=== PATIENT | male | born 1955 | race Caucasian/White ===

== ENCOUNTER → 2016-05-31 | Outpatient (CLI) | payer OTHER ==
[~2016-05-31] MED LIST: CALC667C3 PO; CARV25TA12 PO; CEFD300C2 PO; CHOL40002 PO; ESZO2TAB34 PO; FENO160T PO; GABA300C10 PO; INSU100C SQ-INSULIN; INSU100V8 SQ; INSU300I SC; MIDO10TA PO; PROM25TA10 PO; SEVE800T PO; TRAZ100T15 PO; VANC1PLA IVPB
== END | disposition home or self-care (01) ==
LOC: WOUND 08:45
PROVIDERS: ATTEND Internal Medicine
DX: E11.622 Type 2 diabetes mellitus with other skin ulcer (principal); L97.324 Non-pressure chronic ulcer of left ankle with necrosis of bone; E11.40 Type 2 diabetes mellitus with diabetic neuropathy, unspecified; E11.22 Type 2 diabetes mellitus with diabetic chronic kidney disease; I13.2 Hypertensive heart and chronic kidney disease with heart failure and with stage 5 chronic kidney disease, or end stage renal disease; N18.6 End stage renal disease; I50.9 Heart failure, unspecified; E66.01 Morbid (severe) obesity due to excess calories; Z68.37 Body mass index [BMI] 37.0-37.9, adult; E11.51 Type 2 diabetes mellitus with diabetic peripheral angiopathy without gangrene; E78.5 Hyperlipidemia, unspecified; Z86.718 Personal history of other venous thrombosis and embolism; M19.072 Primary osteoarthritis, left ankle and foot; Z86.73 Personal history of transient ischemic attack (TIA), and cerebral infarction without residual deficits; Z79.4 Long term (current) use of insulin; I25.2 Old myocardial infarction; Z87.01 Personal history of pneumonia (recurrent); Z89.422 Acquired absence of other left toe(s); Z89.511 Acquired absence of right leg below knee; Z99.2 Dependence on renal dialysis
CPT/HCPCS: 97597

== ENCOUNTER → 2016-06-14 | Outpatient (CLI) | payer OTHER | END | disposition home or self-care (01) | LOC: WOUND 07:45 | PROVIDERS: ATTEND Internal Medicine | DX: E11.622 Type 2 diabetes mellitus with other skin ulcer (principal); L89.523 Pressure ulcer of left ankle, stage 3; E11.40 Type 2 diabetes mellitus with diabetic neuropathy, unspecified; E11.22 Type 2 diabetes mellitus with diabetic chronic kidney disease; N18.9 Chronic kidney disease, unspecified; Z95.0 Presence of cardiac pacemaker; Z89.511 Acquired absence of right leg below knee; Z89.422 Acquired absence of other left toe(s) | CPT/HCPCS: 97597 ==

== ENCOUNTER → 2016-06-28 | Outpatient (CLI) | payer OTHER | END | disposition home or self-care (01) | LOC: WOUND 08:17 | PROVIDERS: ATTEND Internal Medicine | DX: E11.622 Type 2 diabetes mellitus with other skin ulcer (principal); L97.324 Non-pressure chronic ulcer of left ankle with necrosis of bone; E11.40 Type 2 diabetes mellitus with diabetic neuropathy, unspecified; Z68.37 Body mass index [BMI] 37.0-37.9, adult; E66.01 Morbid (severe) obesity due to excess calories; E11.22 Type 2 diabetes mellitus with diabetic chronic kidney disease; I13.2 Hypertensive heart and chronic kidney disease with heart failure and with stage 5 chronic kidney disease, or end stage renal disease; I50.9 Heart failure, unspecified; N18.6 End stage renal disease; Z99.2 Dependence on renal dialysis; E78.5 Hyperlipidemia, unspecified; I25.2 Old myocardial infarction; Z86.718 Personal history of other venous thrombosis and embolism; M19.072 Primary osteoarthritis, left ankle and foot; Z86.73 Personal history of transient ischemic attack (TIA), and cerebral infarction without residual deficits; E11.51 Type 2 diabetes mellitus with diabetic peripheral angiopathy without gangrene; I25.10 Atherosclerotic heart disease of native coronary artery without angina pectoris; E44.0 Moderate protein-calorie malnutrition; G47.30 Sleep apnea, unspecified; Z89.422 Acquired absence of other left toe(s); Z89.511 Acquired absence of right leg below knee | CPT/HCPCS: 97597 ==

== ENCOUNTER → 2016-07-05 | Outpatient (CLI) | payer OTHER | END | disposition home or self-care (01) | LOC: WOUND 08:15 | PROVIDERS: ATTEND Internal Medicine | DX: E11.622 Type 2 diabetes mellitus with other skin ulcer (principal); L97.324 Non-pressure chronic ulcer of left ankle with necrosis of bone; E11.40 Type 2 diabetes mellitus with diabetic neuropathy, unspecified; I25.10 Atherosclerotic heart disease of native coronary artery without angina pectoris; Z68.37 Body mass index [BMI] 37.0-37.9, adult; E66.01 Morbid (severe) obesity due to excess calories; E44.0 Moderate protein-calorie malnutrition; E11.22 Type 2 diabetes mellitus with diabetic chronic kidney disease; I13.2 Hypertensive heart and chronic kidney disease with heart failure and with stage 5 chronic kidney disease, or end stage renal disease; I50.20 Unspecified systolic (congestive) heart failure; N18.6 End stage renal disease; Z99.2 Dependence on renal dialysis; Z86.718 Personal history of other venous thrombosis and embolism; Z86.73 Personal history of transient ischemic attack (TIA), and cerebral infarction without residual deficits; I25.2 Old myocardial infarction; E11.51 Type 2 diabetes mellitus with diabetic peripheral angiopathy without gangrene; Z79.4 Long term (current) use of insulin | CPT/HCPCS: 97597 ==

== ENCOUNTER → 2016-07-19 | Outpatient (CLI) | payer OTHER ==
[~2016-07-19] MED LIST changes: -CEFD300C2 PO; +CEFD300C37 PO
== END | disposition home or self-care (01) ==
LOC: WOUND 08:00
PROVIDERS: ATTEND Internal Medicine
DX: E11.622 Type 2 diabetes mellitus with other skin ulcer (principal); L97.324 Non-pressure chronic ulcer of left ankle with necrosis of bone; E11.40 Type 2 diabetes mellitus with diabetic neuropathy, unspecified; I25.10 Atherosclerotic heart disease of native coronary artery without angina pectoris; E44.0 Moderate protein-calorie malnutrition; E11.22 Type 2 diabetes mellitus with diabetic chronic kidney disease; I13.2 Hypertensive heart and chronic kidney disease with heart failure and with stage 5 chronic kidney disease, or end stage renal disease; I50.20 Unspecified systolic (congestive) heart failure; N18.6 End stage renal disease; Z99.2 Dependence on renal dialysis; I25.2 Old myocardial infarction; E78.5 Hyperlipidemia, unspecified; E11.51 Type 2 diabetes mellitus with diabetic peripheral angiopathy without gangrene; M19.072 Primary osteoarthritis, left ankle and foot; Z68.37 Body mass index [BMI] 37.0-37.9, adult; Z95.0 Presence of cardiac pacemaker; Z86.718 Personal history of other venous thrombosis and embolism; Z89.422 Acquired absence of other left toe(s); Z89.511 Acquired absence of right leg below knee; Z86.73 Personal history of transient ischemic attack (TIA), and cerebral infarction without residual deficits
CPT/HCPCS: 99214

== ENCOUNTER → 2016-08-02 | Outpatient (CLI) | payer OTHER | END | disposition home or self-care (01) | LOC: WOUND 08:53 | PROVIDERS: ATTEND Internal Medicine | DX: E11.622 Type 2 diabetes mellitus with other skin ulcer (principal); L97.324 Non-pressure chronic ulcer of left ankle with necrosis of bone; L97.821 Non-pressure chronic ulcer of other part of left lower leg limited to breakdown of skin; E11.40 Type 2 diabetes mellitus with diabetic neuropathy, unspecified; I25.10 Atherosclerotic heart disease of native coronary artery without angina pectoris; E11.22 Type 2 diabetes mellitus with diabetic chronic kidney disease; I13.2 Hypertensive heart and chronic kidney disease with heart failure and with stage 5 chronic kidney disease, or end stage renal disease; I50.20 Unspecified systolic (congestive) heart failure; N18.6 End stage renal disease; Z99.2 Dependence on renal dialysis; E11.51 Type 2 diabetes mellitus with diabetic peripheral angiopathy without gangrene; G47.30 Sleep apnea, unspecified; E44.0 Moderate protein-calorie malnutrition; Z86.718 Personal history of other venous thrombosis and embolism; M19.072 Primary osteoarthritis, left ankle and foot; I25.2 Old myocardial infarction; E66.01 Morbid (severe) obesity due to excess calories; Z68.37 Body mass index [BMI] 37.0-37.9, adult; Z95.0 Presence of cardiac pacemaker; Z89.511 Acquired absence of right leg below knee; Z89.422 Acquired absence of other left toe(s); Z79.4 Long term (current) use of insulin | CPT/HCPCS: 97597; 99215 ==

== ENCOUNTER → 2016-08-09 | Outpatient (CLI) | payer OTHER ==
[~2016-08-09] MED LIST changes: +PRED5TAB PO
== END | disposition home or self-care (01) ==
LOC: WOUND 09:30
PROVIDERS: ATTEND Internal Medicine
DX: E11.622 Type 2 diabetes mellitus with other skin ulcer (principal); L97.821 Non-pressure chronic ulcer of other part of left lower leg limited to breakdown of skin; E11.40 Type 2 diabetes mellitus with diabetic neuropathy, unspecified; L97.324 Non-pressure chronic ulcer of left ankle with necrosis of bone; Z95.0 Presence of cardiac pacemaker; E66.01 Morbid (severe) obesity due to excess calories; I25.2 Old myocardial infarction; Z86.718 Personal history of other venous thrombosis and embolism; E78.5 Hyperlipidemia, unspecified; E11.51 Type 2 diabetes mellitus with diabetic peripheral angiopathy without gangrene; E11.22 Type 2 diabetes mellitus with diabetic chronic kidney disease; I13.2 Hypertensive heart and chronic kidney disease with heart failure and with stage 5 chronic kidney disease, or end stage renal disease; I50.20 Unspecified systolic (congestive) heart failure; N18.6 End stage renal disease; Z99.2 Dependence on renal dialysis; Z68.37 Body mass index [BMI] 37.0-37.9, adult; Z79.4 Long term (current) use of insulin; Z89.422 Acquired absence of other left toe(s); Z89.421 Acquired absence of other right toe(s)
CPT/HCPCS: 97597

== ENCOUNTER → 2016-08-18 | Outpatient (CLI) | payer OTHER | END | disposition home or self-care (01) | LOC: WOUND 09:24 | PROVIDERS: ATTEND Podiatrist Foot & Ankle Surgery | DX: E11.622 Type 2 diabetes mellitus with other skin ulcer (principal); L97.324 Non-pressure chronic ulcer of left ankle with necrosis of bone; E11.40 Type 2 diabetes mellitus with diabetic neuropathy, unspecified; E11.22 Type 2 diabetes mellitus with diabetic chronic kidney disease; N18.9 Chronic kidney disease, unspecified; Z95.0 Presence of cardiac pacemaker | CPT/HCPCS: 99213 ==

== ENCOUNTER → 2016-09-13 | Outpatient (CLI) | payer OTHER | END | disposition home or self-care (01) | LOC: WOUND 10:11 | PROVIDERS: ATTEND Internal Medicine | DX: E11.622 Type 2 diabetes mellitus with other skin ulcer (principal); L97.324 Non-pressure chronic ulcer of left ankle with necrosis of bone; E11.621 Type 2 diabetes mellitus with foot ulcer; L97.521 Non-pressure chronic ulcer of other part of left foot limited to breakdown of skin; L97.821 Non-pressure chronic ulcer of other part of left lower leg limited to breakdown of skin; L89.523 Pressure ulcer of left ankle, stage 3; E11.40 Type 2 diabetes mellitus with diabetic neuropathy, unspecified; I95.9 Hypotension, unspecified; E11.22 Type 2 diabetes mellitus with diabetic chronic kidney disease; N18.9 Chronic kidney disease, unspecified; Z95.0 Presence of cardiac pacemaker; Z89.511 Acquired absence of right leg below knee; Z89.422 Acquired absence of other left toe(s) | CPT/HCPCS: 97597 ==

== ENCOUNTER → 2016-10-11 | Outpatient (CLI) | payer OTHER | END | disposition home or self-care (01) | LOC: WOUND 08:12 | PROVIDERS: ATTEND Internal Medicine | DX: E11.622 Type 2 diabetes mellitus with other skin ulcer (principal); L97.324 Non-pressure chronic ulcer of left ankle with necrosis of bone; L89.523 Pressure ulcer of left ankle, stage 3; E11.40 Type 2 diabetes mellitus with diabetic neuropathy, unspecified; I25.10 Atherosclerotic heart disease of native coronary artery without angina pectoris; E11.22 Type 2 diabetes mellitus with diabetic chronic kidney disease; I13.2 Hypertensive heart and chronic kidney disease with heart failure and with stage 5 chronic kidney disease, or end stage renal disease; I50.9 Heart failure, unspecified; N18.6 End stage renal disease; Z99.2 Dependence on renal dialysis; Z79.4 Long term (current) use of insulin; Z95.0 Presence of cardiac pacemaker; Z89.511 Acquired absence of right leg below knee; Z89.422 Acquired absence of other left toe(s); E11.51 Type 2 diabetes mellitus with diabetic peripheral angiopathy without gangrene | CPT/HCPCS: 99215 ==

== ENCOUNTER → 2016-10-18 | Outpatient (CLI) | payer OTHER | END | disposition home or self-care (01) | LOC: WOUND 08:34 | PROVIDERS: ATTEND Internal Medicine | DX: E11.622 Type 2 diabetes mellitus with other skin ulcer (principal); L97.324 Non-pressure chronic ulcer of left ankle with necrosis of bone; L89.523 Pressure ulcer of left ankle, stage 3; S90.932D Unspecified superficial injury of left great toe, subsequent encounter; E11.40 Type 2 diabetes mellitus with diabetic neuropathy, unspecified; I25.10 Atherosclerotic heart disease of native coronary artery without angina pectoris; E11.51 Type 2 diabetes mellitus with diabetic peripheral angiopathy without gangrene; E11.22 Type 2 diabetes mellitus with diabetic chronic kidney disease; I13.2 Hypertensive heart and chronic kidney disease with heart failure and with stage 5 chronic kidney disease, or end stage renal disease; N18.6 End stage renal disease; I50.9 Heart failure, unspecified; Z99.2 Dependence on renal dialysis; Z79.4 Long term (current) use of insulin; Z89.422 Acquired absence of other left toe(s); Z89.511 Acquired absence of right leg below knee; X58.XXXD Exposure to other specified factors, subsequent encounter | CPT/HCPCS: 99214 ==

== ENCOUNTER → 2018-09-11 | Outpatient (CLI) | payer MEDICARE, BC ==
[~2018-09-11] MED LIST changes: +ESZO2TAB22 PO; -ESZO2TAB34 PO; +REGADENOSON 0.4 MG/5 ML SYRINGE ONE; -SEVE800T PO; +SEVE800T7 PO; +TRAZ-137 PO; -TRAZ100T15 PO
== END | disposition home or self-care (01) ==
LOC: RAD 10:31
PROVIDERS: ATTEND Internal Medicine Cardiovascular Disease
DX: I35.0 Nonrheumatic aortic (valve) stenosis (principal); E78.5 Hyperlipidemia, unspecified; E11.9 Type 2 diabetes mellitus without complications; Z95.0 Presence of cardiac pacemaker
CPT/HCPCS: 78452; 93017; A9502; C8929; J2785; Q9957

== ENCOUNTER 2019-01-25 07:56 | Observation (INO) | payer BC, MEDICARE ==
[~2019-01-25] VITALS: Ht 190.5 cm; Wt 143.1 kg
[2019-01-25 07:40] VITALS: BP 104/64
[~2019-01-25 07:56] MED LIST changes: -REGADENOSON 0.4 MG/5 ML SYRINGE ONE; -VANC1PLA IVPB; +VANC1PLA18 IVPB
[2019-01-25 08:01] VITALS: BP 126/63
[2019-01-25] MEDS ORDERED: CINA30TA2 PO (08:55)
[2019-01-25] MEDS ORDERED: ATOR20TA37 PO (08:57)
[2019-01-25] MEDS ORDERED: ASPI-496 PO (08:57)
[2019-01-25] MEDS ORDERED: MIDAZOLAM 1 MG/ML, 2ML ONE (09:30)
[2019-01-25] MEDS ORDERED: LIDOCAINE 1%, 20ML ONE (09:30)
[2019-01-25] MEDS ORDERED: HEPARIN 1,000 UNITS/ML, 10ML ONE (09:30)
[2019-01-25] MEDS ORDERED: FENTANYL PF 100 MCG/2ML ONE (09:30)
[2019-01-25] MEDS ORDERED: NITROGLYCERIN 5 MG/ML, 10ML ONE (09:30)
[2019-01-25] MEDS ORDERED: VERAPAMIL 2.5 MG/ML, 2ML ONE (09:30)
[2019-01-25] MEDS ORDERED: MULT-717 PO (09:51)
[2019-01-25] MEDS ORDERED: METO25TA91 PO (09:51)
[2019-01-25] MEDS ORDERED: SEVE800T8 PO (09:51)
[2019-01-25] MEDS ORDERED: ESZO3TAB28 PO (09:51)
[2019-01-25] MEDS ORDERED: INSU100V11 SQ (09:51)
[2019-01-25] MEDS ORDERED: LACT1CAP43 PO (09:51)
[2019-01-25] MEDS ORDERED: INSU300I SQ (09:51)
[2019-01-25] MEDS ORDERED: PLEASE ENTER WEIGHT MC SCH (10:00)
[2019-01-25] MEDS ORDERED: methylPREDNISolone SOD SUCC 125 MG/2 ML IVPush SCH (10:00)
[2019-01-25] MEDS ORDERED: DIPHENHYDRAMINE 50 MG/ML, 1ML IVPush ONE (10:00)
[2019-01-25 10:45] LABS: BASOPHILS # (AUTO) 0.06 x10^3/uL (0-0.1); BASOPHILS % (AUTO) 1 % (0-1); EOSINOPHILS # (AUTO) 0.15 x10^3/uL (0-0.4); EOSINOPHILS % (AUTO) 2 % (1-7); LYMPHOCYTES # (AUTO) 1.86 x10^3/uL (1-3.4); LYMPHOCYTES % (AUTO) 23 % (22-44); MD NO; MEAN CORPUSCULAR HEMOGLOBIN 28.4 pg (27.5-34.5); MEAN CORPUSCULAR HGB CONC 32.1 g/dL (33.2-36.2); MEAN CORPUSCULAR VOLUME 88.5 fL (81-97); MEAN PLATELET VOLUME 8.1 fL (7.4-10.4); MONOCYTES # (AUTO) 0.79 x10^3/uL (0.2-0.8); MONOCYTES % (AUTO) 10 % (2-9); NEUTROPHILS # (AUTO) 5.15 x10^3/uL (1.8-6.8); NEUTROPHILS % (AUTO) 64 % (42-75); PLATELET COUNT 159 x10^3/uL (130-400); RED BLOOD COUNT 3.08 x10^6/uL (4.38-5.82); RED CELL DISTRIBUTION WIDTH 18.2 % (9.4-14.8)
[2019-01-25 10:46] LABS: ANION GAP 7 mmol/L (5-15); CALCIUM 8.6 mg/dL (8.5-10.1); CHLORIDE 103 mmol/L (98-107)
[2019-01-25 10:47] LABS: CREATININE 7.93 mg/dL (0.7-1.3)
[2019-01-25] MEDS ORDERED: DIPHENHYDRAMINE 50 MG/ML, 1ML ONE (10:56)
[2019-01-25] MEDS ORDERED: methylPREDNISolone SOD SUCC 125 MG/2 ML ONE (10:56)
[2019-01-25] MEDS ORDERED: SODIUM CHLORIDE 0.9% 1,000 ML IV SCH ×2 (11:00→12:15)
[2019-01-25] MEDS ORDERED: BIVALIRUDIN 250 MG ONE (11:49)
[2019-01-25] MEDS ORDERED: TICAGRELOR 90 MG TABLET ONE (11:49)
[2019-01-25 14:15] VITALS: BP 123/76
== END 2019-01-25 18:35 | disposition home or self-care (01) ==
LOC: INTOOBSV 07:56 → 5SO 07:56
PROVIDERS: ADMIT Internal Medicine Cardiovascular Disease; ATTEND Internal Medicine Cardiovascular Disease
DX: I35.0 Nonrheumatic aortic (valve) stenosis (principal); I25.10 Atherosclerotic heart disease of native coronary artery without angina pectoris; I12.0 Hypertensive chronic kidney disease with stage 5 chronic kidney disease or end stage renal disease; E11.22 Type 2 diabetes mellitus with diabetic chronic kidney disease; N18.6 End stage renal disease; E66.9 Obesity, unspecified; N25.0 Renal osteodystrophy; E11.51 Type 2 diabetes mellitus with diabetic peripheral angiopathy without gangrene; D63.1 Anemia in chronic kidney disease
CPT/HCPCS: 36415; 80048; 85025; 93454; 93571; 96374; 96375; 99156; 99157; C1769; C1887; C1894; G0378; J1200; J1644; J2250; J2930; J3010; J3490; Q9967; J0583

== ENCOUNTER 2019-02-12 11:57 | Outpatient (CLI) | payer BC, MEDICARE ==
[~2019-02-12 11:57] MED LIST changes: +ASPI-496 PO; +ATOR20TA37 PO; +CINA30TA2 PO; +ESZO3TAB28 PO; +INSU100V11 SQ; +INSU300I SQ; +LACT1CAP43 PO; +METO25TA91 PO; +MULT-717 PO; +SEVE800T8 PO; -TRAZ-137 PO; +TRAZ-175 PO
== END 2019-02-12 23:59 | disposition home or self-care (01) ==
LOC: CVU 11:57 → RAD 23:59
PROVIDERS: ATTEND Internal Medicine Cardiovascular Disease
DX: I35.0 Nonrheumatic aortic (valve) stenosis (principal); K22.8 Other specified diseases of esophagus; I65.23 Occlusion and stenosis of bilateral carotid arteries; Z95.0 Presence of cardiac pacemaker
CPT/HCPCS: 71250; 74176; 93880; 94060; 94729

== ENCOUNTER 2019-02-28 06:29 | Inpatient (IN) | payer MEDICARE, BC ==
[~2019-02-28] VITALS: Ht 190.5 cm; Wt 153.0 kg
[~2019-02-28 06:29] MED LIST changes: +CHLORHEXIDINE 15 ML UDC ONE; +TRAZ-137 PO; -TRAZ-175 PO
[2019-02-28] MEDS ORDERED: SODIUM CHLORIDE 0.9% 1,000 ML IV SCH (07:09)
[2019-02-28] MEDS ORDERED: PROPOFOL 10 MG/ML, 20ML ONE (07:26)
[2019-02-28] MEDS ORDERED: LIDOCAINE-MPF 2% ,5ML ONE (07:26)
[2019-02-28] MEDS ORDERED: PHENYLEPHRINE 10 MG/ML ONE ×2 (07:26)
[2019-02-28] MEDS ORDERED: DEXAMETHASONE 4 MG/ML, 1ML ONE ×2 (07:26)
[2019-02-28] MEDS ORDERED: DIPHENHYDRAMINE 50 MG/ML, 1ML IVPush ONE (07:30)
[2019-02-28] MEDS ORDERED: methylPREDNISolone SOD SUCC 125 MG/2 ML IVPush ONE (07:30)
[2019-02-28] MEDS ORDERED: FENTANYL PF 100 MCG/2ML ONE ×3 (07:32→09:17)
[2019-02-28] MEDS ORDERED: HEPARIN 1,000 UNITS/ML, 10ML ONE (07:50)
[2019-02-28] MEDS ORDERED: ONDANSETRON 2MG/ML, 2ML ONE (07:50)
[2019-02-28] MEDS ORDERED: SUCCINYLCHOLINE 20 MG/ML, 10ML ONE (07:50)
[2019-02-28] MEDS ORDERED: CEFAZOLIN 1,000 MG ONE ×2 (07:50→07:56)
[2019-02-28] MEDS ORDERED: ROCURONIUM 10MG/ML,5ML ONE (07:50)
[2019-02-28] MEDS ORDERED: PROTAMINE SULFATE 10 MG/ML, 5ML ONE ×2 (07:50→09:13)
[2019-02-28 07:56] LABS: BASOPHILS # (AUTO) 0.05 x10^3/uL (0-0.1); BASOPHILS % (AUTO) 1 % (0-1); EOSINOPHILS # (AUTO) 0.18 x10^3/uL (0-0.4); EOSINOPHILS % (AUTO) 2 % (1-7); LYMPHOCYTES # (AUTO) 1.35 x10^3/uL (1-3.4); LYMPHOCYTES % (AUTO) 14 % (22-44); MD NO; MEAN CORPUSCULAR HEMOGLOBIN 27.7 pg (27.5-34.5); MEAN CORPUSCULAR HGB CONC 31.9 g/dL (33.2-36.2); MEAN CORPUSCULAR VOLUME 86.8 fL (81-97); MEAN PLATELET VOLUME 7.6 fL (7.4-10.4); MONOCYTES # (AUTO) 1.43 x10^3/uL (0.2-0.8); MONOCYTES % (AUTO) 15 % (2-9); NEUTROPHILS # (AUTO) 6.71 x10^3/uL (1.8-6.8); NEUTROPHILS % (AUTO) 69 % (42-75); PLATELET COUNT 242 x10^3/uL (130-400); RED BLOOD COUNT 3.36 x10^6/uL (4.38-5.82); RED CELL DISTRIBUTION WIDTH 17.5 % (9.4-14.8)
[2019-02-28 08:02] LABS: INTERNATIONAL NORMALIZED RATIO 1.07 (0.93-1.1); PROTHROMBIN TIME 11.2 Seconds (9.6-11.5)
[2019-02-28 08:04] LABS: ALANINE AMINOTRANSFERASE 13 U/L (12-78); ALBUMIN 2.4 g/dL (3.4-5.0); ANION GAP 8 mmol/L (5-15); CALCIUM 8.5 mg/dL (8.5-10.1); CHLORIDE 98 mmol/L (98-107); CREATININE 6.01 mg/dL (0.7-1.3)
[2019-02-28 08:06] LABS: ALKALINE PHOSPHATASE 144 U/L (45-117); BILIRUBIN,TOTAL 0.8 mg/dL (0.2-1.0); TOTAL PROTEIN 6.8 g/dL (6.4-8.2)
[2019-02-28] MEDS ORDERED: NEOSTIGMINE 1 MG/ML, 10ML ONE (08:59)
[2019-02-28] MEDS ORDERED: GLYCOPYRROLATE 0.2MG/1ML, 5ML ONE (08:59)
[2019-02-28] MEDS ORDERED: ONDANSETRON 2MG/ML, 2ML IVPush PRN (09:30)
[2019-02-28] MEDS ORDERED: GABAPENTIN 300 MG CAPSULE PO PRN (09:30)
[2019-02-28] MEDS ORDERED: hydrALAzine 20 MG/ML, 1ML IVPush PRN (09:30)
[2019-02-28] MEDS ORDERED: ACETAMINOPHEN 325 MG TABLET PO PRN (09:30)
[2019-02-28] MEDS ORDERED: CLOPIDOGREL 300 MG TABLET PO ONE (09:30)
[2019-02-28] MEDS ORDERED: LABETALOL 20 MG/4 ML IVPush PRN (09:30)
[2019-02-28] MEDS: MIDODRINE 5 MG TABLET PO SCH (10:52)
[2019-02-28] MEDS ORDERED: INSULIN GLARGINE 100 UNITS/ML, PEN SQ-INSULIN SCH (11:00)
[2019-02-28] MEDS: INSULIN REGULAR 100 UNITS/ML, 3ML VIAL SQ-INSULIN SCH ×3 (11:55→19:55)
[2019-02-28 12:16] VITALS: BP 109/66
[2019-02-28 12:45] VITALS: BP 107/56
[2019-02-28] MEDS: SEVELAMER CARBONATE 800MG TAB PO SCH (16:48)
[2019-02-28 19:58] VITALS: BP 113/66
[2019-02-28] MEDS: HYDROcodone/APAP 5/325 TABLET PO PRN (20:13)
[2019-02-28] MEDS ORDERED: TEMPLATE NON-FORMULARY MED. (Eszopiclone** (Lunesta**) 3 MG) HOMEMEDPO SCH (21:00)
[2019-02-28] MEDS ORDERED: ATORVASTATIN 20 MG TABLET PO SCH (21:00)
[2019-02-28] MEDS ORDERED: ZOLPIDEM 5MG TABLET PO PRN (23:00)
[2019-03-01 02:40] VITALS: BP 115/76
[2019-03-01 05:28] LABS: BASOPHILS # (AUTO) 0.02 x10^3/uL (0-0.1); BASOPHILS % (AUTO) 0 % (0-1); EOSINOPHILS # (AUTO) 0.08 x10^3/uL (0-0.4); EOSINOPHILS % (AUTO) 1 % (1-7); LYMPHOCYTES # (AUTO) 1.01 x10^3/uL (1-3.4); LYMPHOCYTES % (AUTO) 12 % (22-44); MD NO; MEAN CORPUSCULAR HEMOGLOBIN 28.1 pg (27.5-34.5); MEAN CORPUSCULAR HGB CONC 31.9 g/dL (33.2-36.2); MEAN CORPUSCULAR VOLUME 88.3 fL (81-97); MEAN PLATELET VOLUME 8.5 fL (7.4-10.4); MONOCYTES # (AUTO) 1.28 x10^3/uL (0.2-0.8); MONOCYTES % (AUTO) 15 % (2-9); NEUTROPHILS # (AUTO) 6.45 x10^3/uL (1.8-6.8); NEUTROPHILS % (AUTO) 73 % (42-75); PLATELET COUNT 212 x10^3/uL (130-400); RED BLOOD COUNT 3.41 x10^6/uL (4.38-5.82); RED CELL DISTRIBUTION WIDTH 17.6 % (9.4-14.8)
[2019-03-01 05:36] LABS: ALBUMIN 2.3 g/dL (3.4-5.0); ANION GAP 11 mmol/L (5-15); CALCIUM 8.3 mg/dL (8.5-10.1); CHLORIDE 98 mmol/L (98-107)
[2019-03-01 05:46] LABS: % IRON SATURATION 24 % (20-55); ALANINE AMINOTRANSFERASE 14 U/L (12-78); ALKALINE PHOSPHATASE 136 U/L (45-117); BILIRUBIN,TOTAL 0.6 mg/dL (0.2-1.0); CREATININE 7.17 mg/dL (0.7-1.3); IRON LEVEL 35 mcg/dL (65-175); TOTAL IRON BINDING CAPACITY 148 mcg/dL (250-450); TOTAL PROTEIN 6.9 g/dL (6.4-8.2)
[2019-03-01 07:50] VITALS: BP 118/65
[2019-03-01] MEDS: INSULIN REGULAR 100 UNITS/ML, 3ML VIAL SQ-INSULIN SCH ×3 (07:52→17:24)
[2019-03-01] MEDS: SEVELAMER CARBONATE 800MG TAB PO SCH ×3 (07:53→17:24)
[2019-03-01] MEDS: MIDODRINE 5 MG TABLET PO SCH (07:53)
[2019-03-01] MEDS ORDERED: INSULIN REGULAR 100 UNITS/ML, 3ML VIAL SQ-INSULIN SCH (09:00)
[2019-03-01] MEDS ORDERED: INSULIN GLARGINE 100 UNITS/ML, PEN SQ-INSULIN SCH (09:00)
[2019-03-01] MEDS ORDERED: CLOPIDOGREL 75 MG TABLET PO SCH (09:00)
[2019-03-01] MEDS ORDERED: MULTIVITAMINS/MINERALS TABLET PO SCH (09:00)
[2019-03-01] MEDS ORDERED: CINACALCET 30 MG TABLET PO SCH (09:00)
[2019-03-01] MEDS ORDERED: ASPIRIN 81 MG TABLET EC PO SCH (09:00)
[2019-03-01] MEDS ORDERED: LACTOBACILLUS CHEW TABLET PO SCH (09:00)
[2019-03-01 14:21] VITALS: BP 106/64
[2019-03-01] MEDS: HYDROcodone/APAP 5/325 TABLET PO PRN (14:24)
[2019-03-01] MEDS ORDERED: ASPI81TA45 PO (15:37)
[2019-03-01] MEDS ORDERED: ACET325T26 PO (15:37)
[2019-03-01] MEDS ORDERED: CLOP75TA PO (15:37)
[2019-03-01] MEDS ORDERED: VANCOMYCIN PMX 1GM/200ML 200 ML IV ONE (17:00)
== END 2019-03-01 20:00 | disposition home or self-care (01) | DRG 266 ==
LOC: ORIP 06:29 → UNDOADMIN 06:29 → ORIP 07:09 → CCU 09:35 → 5SO 12:05
PROVIDERS: ADMIT Internal Medicine Cardiovascular Disease; ATTEND Internal Medicine Cardiovascular Disease
PROC: B24BZZ4 Ultrasonography of Heart with Aorta, Transesophageal (ICD-10-PCS; 2019-02-28)
PROC: 03HY32Z Insertion of Monitoring Device into Upper Artery, Percutaneous Approach (ICD-10-PCS; 2019-02-28)
PROC: B3101ZZ Fluoroscopy of Thoracic Aorta using Low Osmolar Contrast (ICD-10-PCS; 2019-02-28)
PROC: 02RF38Z Replacement of Aortic Valve with Zooplastic Tissue, Percutaneous Approach (ICD-10-PCS; principal; 2019-02-28 08:00)
PROC: 5A1D70Z Performance of Urinary Filtration, Intermittent, Less than 6 Hours Per Day (ICD-10-PCS; 2019-03-01)
DX: I35.0 Nonrheumatic aortic (valve) stenosis (principal); Z00.6 Encounter for examination for normal comparison and control in clinical research program; N18.6 End stage renal disease; K65.9 Peritonitis, unspecified; I42.8 Other cardiomyopathies; I13.2 Hypertensive heart and chronic kidney disease with heart failure and with stage 5 chronic kidney disease, or end stage renal disease; I50.32 Chronic diastolic (congestive) heart failure; Z88.3 Allergy status to other anti-infective agents; Z88.5 Allergy status to narcotic agent; Z88.8 Allergy status to other drugs, medicaments and biological substances; I25.10 Atherosclerotic heart disease of native coronary artery without angina pectoris; E11.9 Type 2 diabetes mellitus without complications; I73.9 Peripheral vascular disease, unspecified; D63.1 Anemia in chronic kidney disease; E11.22 Type 2 diabetes mellitus with diabetic chronic kidney disease; E11.51 Type 2 diabetes mellitus with diabetic peripheral angiopathy without gangrene; E11.65 Type 2 diabetes mellitus with hyperglycemia; I25.5 Ischemic cardiomyopathy; I44.7 Left bundle-branch block, unspecified; N25.0 Renal osteodystrophy; Z86.79 Personal history of other diseases of the circulatory system; Z89.511 Acquired absence of right leg below knee; Z95.0 Presence of cardiac pacemaker; Z99.2 Dependence on renal dialysis; Z99.3 Dependence on wheelchair; Z99.81 Dependence on supplemental oxygen
CPT/HCPCS: 33361; 36415; 80053; 82306; 82728; 82962; 83540; 83550; 83735; 83970; 84100; 84550; 85025; 85347; 85610; 85730; 86705; 86706; 86850; 86870; 86900; 86902; 86922; 86923; 87070; 87077; 87081; 87205; 87340; 89051; 92986; 93005; 93312; 93321; 93325; 93355; C1760; C1769; C1894; C8929; G0378; J0690; J1100; J1644; J1815; J2405; J2704; J2710; J2720; J3010; J3370; Q9957; J0330; J1200; J2370; J2930; Q9967